=== PATIENT | male | born 1970 | race Caucasian/White ===

== ENCOUNTER 2023-10-10 08:02 | Emergency (ER) | payer OTHER ==
[2023-10-10] MEDS: Diphtheria/Tetanus Toxoids,Adult (Td) 0.5 ML SDV IM ONE (09:08)
[2023-10-10] MEDS: Bacitracin Oint 1 GM U/D Packet TOP ONE (09:47)
== END 2023-10-10 09:45 | disposition home or self-care (01) ==
LOC: JP.ED 08:02
DX: S61.213A Laceration without foreign body of left middle finger without damage to nail, initial encounter (principal); I10 Essential (primary) hypertension; Z87.891 Personal history of nicotine dependence; Z88.5 Allergy status to narcotic agent; Z79.899 Other long term (current) drug therapy; Z23 Encounter for immunization; W25.XXXA Contact with sharp glass, initial encounter; Y93.89 Activity, other specified
CPT/HCPCS: 12001; 90471; 90714; 99282-25

== ENCOUNTER 2024-02-16 08:20 | Day surgery (SDC) | payer OTHER ==
[2024-02-16] MEDS: Lactated Ringers 1,000 ML IV SCH (09:12)
[2024-02-16] MEDS ORDERED: Propofol 200 MG/20 ML SDV ONE (09:25)
[2024-02-16] MEDS ORDERED: Midazolam 1 MG/ML 2 ML SDV ONE (09:25)
[2024-02-16] MEDS ORDERED: fentaNYL 50 MCG/ML SDV ONE (09:25)
== END 2024-02-16 11:30 | disposition home or self-care (01) ==
LOC: JP.SDS 08:20
PROVIDERS: ATTEND Surgery
DX: Z12.11 Encounter for screening for malignant neoplasm of colon (principal)
CPT/HCPCS: G0121; J2250; J2704; J3010; J7120; 00812-QZ